=== PATIENT | female | born 1940 | race Caucasian/White ===

== ENCOUNTER 2016-06-24 08:18 | Inpatient (IN) | payer MEDICARE, OTHER ==
[~2016-06-24 08:18] MED LIST: ADVAIR 25028 BLISTE1 PO; ALBUTEROL2.5 MG/3 M INH; ASPIRIN81 M1 PO; CALCIUM CARBON600 M2 PO; HYDROCODON-ACE1 EA16 PO; MUCINEX DM ER1 EAC1 PO; MULTIVITAMINS1 EAC6 PO; PROLIA60 MG/1 M1 SC; XALATAN2.5 M1 LEFT EYE
[2016-06-24 09:22] LABS: PROTHROMBIN TIME 11.1 SECONDS (9.0-13.6)
[2016-06-25 05:52] LABS: BASO % 0.4 % (0-2); EOS % 2.6 % (0-7); EOSINOPHIL ABSOLUTE COUNT 0.2 tho/cmm (0.0-0.7); HCT-HEMATOCRIT 29.9 % (34.0-49.0); HGB-HEMOGLOBIN 9.8 gm/dl (12.0-15.5); IMMATURE GRANULOCYTES ABSOLUTE 0.01 tho/cmm (0-0.03); IMMATURE GRANULOCYTES PERCENT 0.1 % (0-0.3); LYMPH % 6.5 % (20-45); LYMPH ABSOLUTE COUNT 0.6 tho/cmm (0.8-4.5); MCH (MEAN CORPUSCULAR HGB) 31.9 pg (28.0-32.0); MCHC MEAN CORPUSCULAR HGB CONC 32.8 % (32.0-36.0); MCV (MEAN CELL VOLUME) 97.4 fl (82.0-96.0); MEAN PLATELET VOLUME 8.9 cmc (9.4-12.4); MONO % 11.6 % (0-12); NEUTROPHIL ABSOLUTE COUNT 6.6 tho/cmm (1.6-8.0); NEUTROPHIL-AUTOMATED 6.6 tho/cmm (1.6-8.0); NEUTROPHILS % 78.8 % (40-80); PLATELET COUNT 179 tho/cmm (150-450); RED BLOOD COUNT 3.07 mil/cmm (4.00-5.20); WHITE BLOOD COUNT 8.4 tho/cmm (4.0-10.0)
[2016-06-25 06:18] LABS: ANION GAP 11 mmol/L (0-20); BLOOD UREA NITROGEN 10 mg/dl (6-24); CALCIUM 8.3 mg/dl (8.5-10.5); CARBON DIOXIDE-VENOUS 27 mmol/L (22-32); CHLORIDE 104 mmol/l (96-110); GLUCOSE 99 mg/dL (70-110); POTASSIUM 4.5 mmol/L (3.7-5.1); SODIUM 137 mmol/L (135-145); eGFR VALUE FOR BLACK 84 mL/Min
[2016-06-25 13:06] LABS: HGB-HEMOGLOBIN 10.3 gm/dl (12.0-15.5); MCV (MEAN CELL VOLUME) 97.2 fl (82.0-96.0); RED CELL DISTRIBUTION WIDTH 14.1 % (12.4-16.4)
[2016-06-26 10:11] LABS: HCT-HEMATOCRIT 28.9 % (34.0-49.0); HGB-HEMOGLOBIN 9.5 gm/dl (12.0-15.5); RED CELL DISTRIBUTION WIDTH 14.3 % (12.4-16.4)
[2016-06-26 10:28] LABS: ANION GAP 12 mmol/L (0-20); BLOOD UREA NITROGEN 11 mg/dl (6-24); CALCIUM 8.9 mg/dl (8.5-10.5); CARBON DIOXIDE-VENOUS 29 mmol/L (22-32); CHLORIDE 94 mmol/l (96-110); CREATININE 0.93 mg/dl (0.50-1.10); GLUCOSE 115 mg/dL (70-110); POTASSIUM 4.1 mmol/L (3.7-5.1); SODIUM 131 mmol/L (135-145); eGFR VALUE FOR BLACK 70 mL/Min
[2016-06-26 16:23] LABS: ABG CO2 ARTERIAL 26 mmol/L (21-27); ARTERIAL BLD GAS O2 SATURATION 91 % (95-98); ARTERIAL BLOOD GAS PCO2 38 mmHg (32-45); ARTERIAL PO2 58 mmHg (70-100); BICARBONATE 24 mmol/L (21-28); BLOOD GAS BASE EXCESS 0 mM/L (-/+3); PH 7.42 Units (7.35-7.45)
[2016-06-29 05:45] LABS: BASO % 0.5 % (0-2); EOS % 2.3 % (0-7); EOSINOPHIL ABSOLUTE COUNT 0.2 tho/cmm (0.0-0.7); HCT-HEMATOCRIT 26.3 % (34.0-49.0); HGB-HEMOGLOBIN 8.8 gm/dl (12.0-15.5); IMMATURE GRANULOCYTES ABSOLUTE 0.02 tho/cmm (0-0.03); IMMATURE GRANULOCYTES PERCENT 0.3 % (0-0.3); LYMPH % 8.6 % (20-45); LYMPH ABSOLUTE COUNT 0.7 tho/cmm (0.8-4.5); MCH (MEAN CORPUSCULAR HGB) 31.4 pg (28.0-32.0); MCHC MEAN CORPUSCULAR HGB CONC 33.5 % (32.0-36.0); MCV (MEAN CELL VOLUME) 93.9 fl (82.0-96.0); MEAN PLATELET VOLUME 9.1 cmc (9.4-12.4); MONOCYTE ABSOLUTE COUNT 1.1 tho/cmm (0.0-1.2); NEUTROPHIL ABSOLUTE COUNT 5.9 tho/cmm (1.6-8.0); NEUTROPHIL-AUTOMATED 5.9 tho/cmm (1.6-8.0); NEUTROPHILS % 74.3 % (40-80); PLATELET COUNT 219 tho/cmm (150-450); RED CELL DISTRIBUTION WIDTH 14.1 % (12.4-16.4); WHITE BLOOD COUNT 7.9 tho/cmm (4.0-10.0)
[2016-06-29 05:50] LABS: ANION GAP 13 mmol/L (0-20); BLOOD UREA NITROGEN 11 mg/dl (6-24); CALCIUM 9.1 mg/dl (8.5-10.5); CARBON DIOXIDE-VENOUS 27 mmol/L (22-32); CHLORIDE 95 mmol/l (96-110); GLUCOSE 109 mg/dL (70-110); POTASSIUM 4.2 mmol/L (3.7-5.1); SODIUM 131 mmol/L (135-145); eGFR VALUE FOR BLACK 84 mL/Min
[2016-06-29 05:55] LABS: MAGNESIUM 1.9 mg/dl (1.3-2.6)
[2016-06-29 10:04] LABS: ABG CO2 ARTERIAL 26 mmol/L (21-27); ARTERIAL BLD GAS O2 SATURATION 94 % (95-98); ARTERIAL BLOOD GAS PCO2 32 mmHg (32-45); ARTERIAL PO2 65 mmHg (70-100); BICARBONATE 25 mmol/L (21-28); BLOOD GAS BASE EXCESS 3 mM/L (-/+3); PH 7.51 Units (7.35-7.45)
[2016-06-29 15:49] LABS: URINE APPEARANCE CLEAR; URINE BILIRUBIN NEGATIVE (NEG); URINE BLOOD NEGATIVE (NEG); URINE COLOR YELLOW; URINE GLUCOSE (UA) NEGATIVE (NEG); URINE KETONE NEGATIVE (NEG); URINE LEUKOCYTE ESTERASE POSITIVE (NEG); URINE NITRITE NEGATIVE (NEG); URINE PROTEIN NEGATIVE (NEG)
[2016-06-29 15:55] LABS: URINE RBC 0 /[HPF] (0-5)
[2016-06-29 16:00] LABS: URINE CREATININE-RANDOM 24 mg/dl (30-125); URINE SODIUM-RANDOM 32 mmol/L (20-110)
[2016-06-30 06:16] LABS: BASO % 0.6 % (0-2); EOS % 2.4 % (0-7); EOSINOPHIL ABSOLUTE COUNT 0.2 tho/cmm (0.0-0.7); HCT-HEMATOCRIT 26.1 % (34.0-49.0); HGB-HEMOGLOBIN 8.8 gm/dl (12.0-15.5); IMMATURE GRANULOCYTES ABSOLUTE 0.03 tho/cmm (0-0.03); IMMATURE GRANULOCYTES PERCENT 0.4 % (0-0.3); LYMPH % 13.8 % (20-45); LYMPH ABSOLUTE COUNT 0.9 tho/cmm (0.8-4.5); MCH (MEAN CORPUSCULAR HGB) 31.4 pg (28.0-32.0); MCHC MEAN CORPUSCULAR HGB CONC 33.7 % (32.0-36.0); MCV (MEAN CELL VOLUME) 93.2 fl (82.0-96.0); MEAN PLATELET VOLUME 9.1 cmc (9.4-12.4); NEUTROPHIL ABSOLUTE COUNT 4.6 tho/cmm (1.6-8.0); NEUTROPHIL-AUTOMATED 4.6 tho/cmm (1.6-8.0); NEUTROPHILS % 67.8 % (40-80); PLATELET COUNT 242 tho/cmm (150-450); RED CELL DISTRIBUTION WIDTH 14.1 % (12.4-16.4); WHITE BLOOD COUNT 6.7 tho/cmm (4.0-10.0)
[2016-06-30 06:26] LABS: ANION GAP 16 mmol/L (0-20); BLOOD UREA NITROGEN 10 mg/dl (6-24); CALCIUM 9.1 mg/dl (8.5-10.5); CARBON DIOXIDE-VENOUS 30 mmol/L (22-32); CHLORIDE 89 mmol/l (96-110); CREATININE 0.96 mg/dl (0.50-1.10); GLUCOSE 117 mg/dL (70-110); POTASSIUM 3.5 mmol/L (3.7-5.1); SODIUM 131 mmol/L (135-145); eGFR VALUE FOR BLACK 68 mL/Min
[2016-07-01 05:15] LABS: BASO % 0.3 % (0-2); EOS % 3.5 % (0-7); EOSINOPHIL ABSOLUTE COUNT 0.2 tho/cmm (0.0-0.7); HCT-HEMATOCRIT 24.7 % (34.0-49.0); HGB-HEMOGLOBIN 8.3 gm/dl (12.0-15.5); IMMATURE GRANULOCYTES ABSOLUTE 0.02 tho/cmm (0-0.03); IMMATURE GRANULOCYTES PERCENT 0.3 % (0-0.3); LYMPH ABSOLUTE COUNT 0.9 tho/cmm (0.8-4.5); MCH (MEAN CORPUSCULAR HGB) 31.6 pg (28.0-32.0); MCHC MEAN CORPUSCULAR HGB CONC 33.6 % (32.0-36.0); MCV (MEAN CELL VOLUME) 93.9 fl (82.0-96.0); MEAN PLATELET VOLUME 8.9 cmc (9.4-12.4); MONO % 15.8 % (0-12); NEUTROPHILS % 65.1 % (40-80); PLATELET COUNT 234 tho/cmm (150-450); RED BLOOD COUNT 2.63 mil/cmm (4.00-5.20); RED CELL DISTRIBUTION WIDTH 14.1 % (12.4-16.4); WHITE BLOOD COUNT 6.1 tho/cmm (4.0-10.0)
[2016-07-01 05:24] LABS: ANION GAP 14 mmol/L (0-20); BLOOD UREA NITROGEN 11 mg/dl (6-24); CALCIUM 8.7 mg/dl (8.5-10.5); CARBON DIOXIDE-VENOUS 30 mmol/L (22-32); CHLORIDE 91 mmol/l (96-110); CREATININE 0.94 mg/dl (0.50-1.10); GLUCOSE 101 mg/dL (70-110); POTASSIUM 3.6 mmol/L (3.7-5.1); SODIUM 131 mmol/L (135-145); eGFR VALUE FOR BLACK 69 mL/Min
[2016-07-02 06:30] LABS: BASO % 0.3 % (0-2); EOS % 2.4 % (0-7); EOSINOPHIL ABSOLUTE COUNT 0.2 tho/cmm (0.0-0.7); HCT-HEMATOCRIT 25.9 % (34.0-49.0); HGB-HEMOGLOBIN 8.7 gm/dl (12.0-15.5); IMMATURE GRANULOCYTES ABSOLUTE 0.02 tho/cmm (0-0.03); IMMATURE GRANULOCYTES PERCENT 0.3 % (0-0.3); LYMPH % 10.5 % (20-45); LYMPH ABSOLUTE COUNT 0.7 tho/cmm (0.8-4.5); MCH (MEAN CORPUSCULAR HGB) 31.4 pg (28.0-32.0); MCHC MEAN CORPUSCULAR HGB CONC 33.6 % (32.0-36.0); MCV (MEAN CELL VOLUME) 93.5 fl (82.0-96.0); MEAN PLATELET VOLUME 8.8 cmc (9.4-12.4); MONO % 12.9 % (0-12); MONOCYTE ABSOLUTE COUNT 0.9 tho/cmm (0.0-1.2); NEUTROPHIL ABSOLUTE COUNT 5.2 tho/cmm (1.6-8.0); NEUTROPHIL-AUTOMATED 5.2 tho/cmm (1.6-8.0); NEUTROPHILS % 73.6 % (40-80); PLATELET COUNT 279 tho/cmm (150-450); RED BLOOD COUNT 2.77 mil/cmm (4.00-5.20); RED CELL DISTRIBUTION WIDTH 13.9 % (12.4-16.4); WHITE BLOOD COUNT 7.1 tho/cmm (4.0-10.0)
[2016-07-02 06:59] LABS: ANION GAP 12 mmol/L (0-20); BLOOD UREA NITROGEN 12 mg/dl (6-24); CALCIUM 8.6 mg/dl (8.5-10.5); CARBON DIOXIDE-VENOUS 29 mmol/L (22-32); CHLORIDE 91 mmol/l (96-110); CREATININE 0.92 mg/dl (0.50-1.10); GLUCOSE 107 mg/dL (70-110); POTASSIUM 4.2 mmol/L (3.7-5.1); SODIUM 128 mmol/L (135-145); eGFR VALUE FOR BLACK 71 mL/Min
[2016-07-03 04:59] LABS: BASO % 0.4 % (0-2); EOSINOPHIL ABSOLUTE COUNT 0.2 tho/cmm (0.0-0.7); HCT-HEMATOCRIT 26.1 % (34.0-49.0); HGB-HEMOGLOBIN 8.7 gm/dl (12.0-15.5); IMMATURE GRANULOCYTES ABSOLUTE 0.03 tho/cmm (0-0.03); IMMATURE GRANULOCYTES PERCENT 0.4 % (0-0.3); LYMPH % 10.4 % (20-45); LYMPH ABSOLUTE COUNT 0.8 tho/cmm (0.8-4.5); MCH (MEAN CORPUSCULAR HGB) 31.2 pg (28.0-32.0); MCHC MEAN CORPUSCULAR HGB CONC 33.3 % (32.0-36.0); MCV (MEAN CELL VOLUME) 93.5 fl (82.0-96.0); MEAN PLATELET VOLUME 8.5 cmc (9.4-12.4); MONO % 12.5 % (0-12); MONOCYTE ABSOLUTE COUNT 0.9 tho/cmm (0.0-1.2); NEUTROPHIL ABSOLUTE COUNT 5.3 tho/cmm (1.6-8.0); NEUTROPHIL-AUTOMATED 5.3 tho/cmm (1.6-8.0); NEUTROPHILS % 73.3 % (40-80); PLATELET COUNT 283 tho/cmm (150-450); RED BLOOD COUNT 2.79 mil/cmm (4.00-5.20); RED CELL DISTRIBUTION WIDTH 13.9 % (12.4-16.4); WHITE BLOOD COUNT 7.2 tho/cmm (4.0-10.0)
[2016-07-03 05:07] LABS: ANION GAP 11 mmol/L (0-20); BLOOD UREA NITROGEN 11 mg/dl (6-24); CALCIUM 8.7 mg/dl (8.5-10.5); CARBON DIOXIDE-VENOUS 29 mmol/L (22-32); CHLORIDE 95 mmol/l (96-110); CREATININE 0.88 mg/dl (0.50-1.10); GLUCOSE 117 mg/dL (70-110); SODIUM 131 mmol/L (135-145); eGFR VALUE FOR BLACK 75 mL/Min
== END 2016-07-03 16:00 | DRG 268 ==
LOC: SHSA 08:18 → PACU 12:51 → CCU 13:34 → PCUB 14:08
PROVIDERS: Internal Medicine Cardiovascular Disease; Internal Medicine Pulmonary Disease; Nurse Practitioner Family; ADMIT Surgery Vascular Surgery
PROC: 04V03E6 (ICD-10-PCS; 2016-06-24)
PROC: B24BZZ4 Ultrasonography of Heart with Aorta, Transesophageal (ICD-10-PCS; principal; 2016-06-30)
PROC: 5A2204Z Restoration of Cardiac Rhythm, Single (ICD-10-PCS; principal; 2016-06-30)
DX: I71.4 Abdominal aortic aneurysm, without rupture (principal); J18.9 Pneumonia, unspecified organism; J95.821 Acute postprocedural respiratory failure; I48.91 Unspecified atrial fibrillation; J44.9 Chronic obstructive pulmonary disease, unspecified; I47.1 Supraventricular tachycardia; I50.9 Heart failure, unspecified; E78.5 Hyperlipidemia, unspecified; H40.9 Unspecified glaucoma; I25.10 Atherosclerotic heart disease of native coronary artery without angina pectoris; M81.0 Age-related osteoporosis without current pathological fracture; Y95 Nosocomial condition; R04.0 Epistaxis; Z72.0 Tobacco use; I73.9 Peripheral vascular disease, unspecified; Z87.898 Personal history of other specified conditions; Z23 Encounter for immunization
CPT/HCPCS: C1751; C1760; C1769; C1887; G0009; J0153; J0282; J0690; J1650; J1940; J1956; J2270; J2405; J3010; J3475; J3480; J7030; J7050; Q9967